=== PATIENT | male | born 1970 | race Caucasian/White ===

== ENCOUNTER 2018-04-04 23:12 | Emergency (ER) | payer OTHER ==
[~2018-04-04] VITALS: Ht 167.6 cm; Wt 93.0 kg
[2018-04-04] MEDS ORDERED: NOHOMEMEDICATIONS (23:38)
[2018-04-05] MEDS ORDERED: ZPAK PO (00:03)
[2018-04-05] MEDS ORDERED: VENTOLIN HFA 1818 GM INH (00:03)
[2018-04-05 00:31] VITALS: BP 145/68
== END 2018-04-05 00:34 | disposition home or self-care (01) ==
LOC: M.ERS 23:12
DX: J40 Bronchitis, not specified as acute or chronic (principal); F17.210 Nicotine dependence, cigarettes, uncomplicated; Z88.2 Allergy status to sulfonamides

== ENCOUNTER 2020-03-19 17:14 | Emergency (ER) | payer OTHER ==
[~2020-03-19] VITALS: Ht 167.6 cm; Wt 86.6 kg
[~2020-03-19 17:14] MED LIST: NOHOMEMEDICATIONS; VENTOLIN HFA 1818 GM INH; ZPAK PO
[2020-03-19] MEDS ORDERED: IBUPROFEN 800800 M1 PO (17:35)
[2020-03-19] MEDS ORDERED: FLEXERIL PO (17:35)
[2020-03-19 18:09] VITALS: BP 164/80
== END 2020-03-19 18:10 | disposition home or self-care (01) ==
LOC: M.ERS 17:14
DX: S46.812A Strain of other muscles, fascia and tendons at shoulder and upper arm level, left arm, initial encounter (principal); R22.1 Localized swelling, mass and lump, neck; F17.210 Nicotine dependence, cigarettes, uncomplicated; Z88.2 Allergy status to sulfonamides; X50.1XXA Overexertion from prolonged static or awkward postures, initial encounter; Y93.89 Activity, other specified; Y92.89 Other specified places as the place of occurrence of the external cause; Y99.8 Other external cause status